=== PATIENT | male | born 1995 | race Caucasian/White ===

== ENCOUNTER 2020-01-29 01:00 | Emergency (ER) | payer BC ==
[~2020-01-29] VITALS: Ht 167.6 cm; Wt 90.7 kg
--- NOTE | 2020-01-29 01:05 | NUR ---
PT BIBSELF C/O R ANKLE PAIN. PT IS ALSO REQUESTING DRUG TEST & COVID TEST FOR REHAB FACILITY. PT ADMITS TO TAKING [employer]. PT AAOX4. VITAL SIGNS STABLE. NO ACUTE DISTRESS NOTED AT THIS TIME
--- NOTE | 2020-01-29 01:35 | NUR ---
URINE SAMPLE COLLECTED AND SENT TO LAB.
[2020-01-29] MEDS ORDERED: IBUPROFEN 600 MG TABLET ONE (02:38)
--- NOTE | 2020-01-29 02:44 | NUR ---
Patient discharged to home in stable condition. Written and verbal after care instructions given. Patient verbalizes understanding of instruction.Pt ambulatory with a steady gait
[2020-01-29 02:45] VITALS: BP 128/83
[2020-01-29] MEDS ORDERED: IBUPROFEN 600 MG TABLET PO ONE (03:00)
== END 2020-01-29 02:45 | disposition home or self-care (01) ==
LOC: ER 01:04
DX: Z02.2 Encounter for examination for admission to residential institution (principal); M25.571 Pain in right ankle and joints of right foot; Z20.828 Contact with and (suspected) exposure to other viral communicable diseases; Z88.1 Allergy status to other antibiotic agents
CPT/HCPCS: 73610; 80307; 87426; 99284; C9803